=== PATIENT | female | born 1945 | race Caucasian/White ===

== ENCOUNTER → 2018-05-13 08:15 | Outpatient (CLI) | payer MEDICARE, OTHER, SELFPAY ==
--- NOTE | 2018-05-13 | DI.ECHO.S_ITS ---
[facility] +---------+ : : [address] [address] : : : : [id number] : : : : Phone: [phone]+ Echocardiogram Report + + :Name: VANDANA LOBO Study Date: 05/13/2018 Height: 63 in : :[facility] Weight: 158 lb : : Gender: Female BSA: 1.7 m2 : :: 1945 Age: 73 yrs BP: 148/78 mmHg: :Reason For Study: Edema : : Performed By: Merle Peguero : :Referring: JERICA SANDOVAL : + + Interpretation Summary The left ventricle is normal in size, wall thickness, and systolic function without any focal wall motion abnormalities with the ejection fraction visually estimated to be 60-65%. Diastolic parameters suggest probable normal left ventricular diastolic function and normal filling pressures. The right ventricle grossly appears normal in size with probable normal systolic function. The right ventricular systolic pressure is estimated to be at least 32 mmHg based on an estimated right atrial pressure of 3 mm Hg. Both atria are normal in size. There is mild mitral regurgitation and mild tricuspid regurgitation but no other significant valvular heart disease. Procedure: A two-dimensional transthoracic echocardiogram with color flow and Doppler was performed. The study quality was technically adequate. There is no prior echocardiogram noted for this patient. The patient was in normal sinus rhythm during the exam. Left Ventricle: The left ventricle is normal in size, wall thickness, and systolic function without any focal wall motion abnormalities. The ejection fraction is estimated to be 60-65%. Diastolic parameters suggest probable normal left ventricular diastolic function and normal filling pressures. Right Ventricle: The right ventricle grossly appears normal in size with probable normal systolic function. Atria: Both atria are normal in size. The interatrial septum is intact with no evidence for an atrial septal defect. Mitral Valve: The mitral valve leaflets appear normal. There is no evidence of stenosis, fluttering, or prolapse. There is mild mitral regurgitation. Aortic Valve: The aortic valve is trileaflet. The aortic valve is slightly calcified. Leaflet mobility is minimally reduced. There is no aortic valve stenosis. No aortic regurgitation is present. Tricuspid Valve: The tricuspid valve leaflets are thin and pliable. There is mild tricuspid regurgitation. The right ventricular systolic pressure is estimated to be at least 32 mmHg based on an estimated right atrial pressure of 3 mm Hg. Pulmonic Valve: The pulmonic valve is normal in structure and function. There is no pulmonic valvular regurgitation. There is no other significant valvular heart disease. Great Vessels: The aortic root is normal size. The dimensions of the ascending aorta are normal. The aortic arch is normal in size. The IVC is of normal diameter and collapses greater than 50% with a sniff. This suggests a low right atrial pressure of 3 mm Hg. Pericardium/ Pleura There is no pericardial effusion. There is no pleural effusion. MMode/2D Measurements & Calculations LVIDd: 4.7 cm Ao root diam: 2.8 cm LVIDs: 2.9 cm Aortic Jxn: 2.5 cm FS: 39.3 % asc Aorta Diam: 3.0 cm EPSS: 0.31 cm Ao Arch Diam (Prox Trans): 2.9 cm IVSd: 0.95 cm LVPWd: 0.94 cm LV lockett. diameter/BSA (cm/m^2): 2.7 LV sys. diameter/BSA (cm/m^2): 1.6 LA dimension: 3.8 cm RA long axis: 4.0 cm LA A2 area: 13.5 cm2 RA area: 13.2 cm2 LA A4 area: 15.3 cm2 RA vol: 36.9 ml LA length (vol): 4.9 cm RA : 21.1 ml/m2 LA vol: 36.0 ml IVC diam: 1.6 cm LA vol index: 20.6 ml/m2 RVDd major: 6.1 cm RVD1 (basal): 3.5 cm RVD2 (mid): 3.0 cm Doppler Measurements & Calculations Ao V2 max: 136.9 cm/sec MV E max elvin: 98.7 cm/sec Ao V2 mean: 83.6 cm/sec MV A max elvin: 67.2 cm/sec Ao max P.5 mmHg MV E/A: 1.5 Ao mean P.5 mmHg Med Peak E' Elvin: 6.9 cm/sec Ao V2 VTI: 28.3 cm E/E' med: 14.2 Lat Peak E' Elvin: 8.9 cm/sec E/E' lat: 11.0 E/e' average: 12.6 MV dec time: 0.13 sec TR max elvin: 269.6 cm/sec TR max P.1 mmHg PA V2 max: 101.5 cm/sec PA V2 mean: 66.5 cm/sec PA mean P.1 mmHg PA Accel Time: 0.14 sec Reading Physician:URIEL
== END ==
PROVIDERS: PCP Student in an Organized Health Care Education/Training Program; Visit Provider Student in an Organized Health Care Education/Training Program
DX: I08.1 Rheumatic disorders of both mitral and tricuspid valves (principal); R60.9 Edema, unspecified
CPT/HCPCS: 93306

== ENCOUNTER → 2018-06-02 11:08 | Outpatient (CLI) | payer MEDICARE, OTHER, SELFPAY ==
--- NOTE | 2018-06-02 13:59 | DI.MRI.S_ITS ---
PROCEDURE: MR LUMBAR SPINE WO CON INDICATIONS: LUMBAR RADICULOPATHY TECHNIQUE: Noncontrast sagittal T1 spin echo and T2 fast echo, sagittal STIR, axial T1 and T2 fast spin echo through the lumbar spine. In cases with scoliosis, additional coronal T2 fast spin echo may be performed. COMPARISON: [facility], CR, SPINE LUMB 6+VW, 04/20/2016, 15:52. [facility], MR, MR LUMBAR SPINE WO CON, 05/07/2016, 9:46. FINDINGS: Image quality: Excellent. Alignment and Curvature: There is grade 1 anterolisthesis of L4-L5. Bone Marrow: Reactive endplate signal changes are present at multiple levels. No acute vertebral body compression fractures. Spinal Cord: Conus medullaris terminates at the L1-L2 level. Visualized cord demonstrates normal signal and size. Paraspinous Soft Tissues: No paravertebral masses. L1-L2: Mild loss of disc height and disc desiccation. There is diffuse posterior disc bulge. The central canal is patent. No foraminal stenosis. No significant change from the last exam. L2-L3: Preserved height. Mild disc desiccation. There is mild posterior disc bulge. The central canal is patent. No foraminal stenosis. No significant change from the last exam. L3-L4: Preserved height. Mild disc desiccation. There is diffuse posterior disc bulge. Mild bilateral facet arthropathy. The central canal is mildly narrowed. Mild bilateral foraminal stenosis. No significant change from the last exam. L4-L5: Preserved height. Mild disc desiccation. There is diffuse posterior disc bulge and posterior central annular fissure. Mild bilateral facet arthropathy. Severe central canal stenosis, increased compared to the last exam. Moderate bilateral foraminal stenosis is unchanged. L5-S1: Mild loss of height and disc desiccation. There is diffuse posterior disc bulge and posterior central annular fissure. Mild bilateral facet arthropathy. The central canal is mildly narrowed. Severe bilateral foraminal stenosis. No significant change from the last exam. IMPRESSION: 1. Multilevel degenerative disc disease and facet arthropathy as described. 2. Severe central canal stenosis at L5-L5. 3. Multilevel foraminal stenosis as described. Dictated by: Rubina Sewell M.D. on 06/02/2018 at 13:34 Approved by: Rubina Sewell M.D. on 06/02/2018 at 18:01
== END ==
PROVIDERS: PCP Student in an Organized Health Care Education/Training Program; Visit Provider Physical Medicine & Rehabilitation Pain Medicine
DX: M51.16 Intervertebral disc disorders with radiculopathy, lumbar region (principal); M51.17 Intervertebral disc disorders with radiculopathy, lumbosacral region; M48.061 Spinal stenosis, lumbar region without neurogenic claudication; M48.07 Spinal stenosis, lumbosacral region; M47.26 Other spondylosis with radiculopathy, lumbar region; M47.27 Other spondylosis with radiculopathy, lumbosacral region
CPT/HCPCS: 72148

== ENCOUNTER → 2018-06-09 09:07 | Outpatient (CLI) | payer MEDICARE, OTHER, SELFPAY ==
--- NOTE | 2018-06-09 | DI.MG.S_ITS ---
BILATERAL DIGITAL SCREENING MAMMOGRAM 3D/2D WITH CAD: 06/09/2018 CLINICAL: Routine screening. Family history of breast cancer. Comparison is made to exams dated: 04/19/2017 mammogram, 03/28/2015 mammogram, and 08/25/2013 mammogram - [facility]. There are scattered fibroglandular elements in both breasts. Current study was also evaluated with a Computer Aided Detection (CAD) system. No significant masses, calcifications, or other findings are seen in either breast. There has been no significant interval change. IMPRESSION: NEGATIVE There is no mammographic evidence of malignancy. A 1 year screening mammogram is recommended. This exam was interpreted at Station ID: [id number]. NOTE: For mammograms, a report in lay terms will be sent to the patient. Approximately 15% of breast malignancies will not be visualized mammographically. In the management of a palpable breast mass, a negative mammogram must not discourage biopsy of a clinically suspicious lesion. Electronically Signed By: Ady mittal/juan:06/09/2018 12:02:05 letter sent: Normal Exam ACR BI-RADS Category 1: Negative 3341F
== END ==
PROVIDERS: PCP Student in an Organized Health Care Education/Training Program; Visit Provider Student in an Organized Health Care Education/Training Program
DX: Z12.31 Encounter for screening mammogram for malignant neoplasm of breast (principal); Z80.3 Family history of malignant neoplasm of breast
CPT/HCPCS: 77063; 77067

== ENCOUNTER → 2020-06-11 11:11 | Outpatient (CLI) | payer MEDICARE, OTHER, SELFPAY ==
--- NOTE | 2020-06-11 | DI.MG.S_ITS ---
BILATERAL DIGITAL SCREENING MAMMOGRAM 3D/2D WITH CAD: 06/11/2020 CLINICAL: Routine screening. Family history of breast cancer. Comparison is made to exams dated: 06/09/2018 mammogram, 04/19/2017 mammogram, and 03/28/2015 mammogram - [facility]. There are scattered fibroglandular elements in both breasts. Current study was also evaluated with a Computer Aided Detection (CAD) system. No significant masses, calcifications, or other findings are seen in either breast. There has been no significant interval change. IMPRESSION: NEGATIVE There is no mammographic evidence of malignancy. A 1 year screening mammogram is recommended. This exam was interpreted at Station ID: [id number]. NOTE: For mammograms, a report in lay terms will be sent to the patient. Approximately 15% of breast malignancies will not be visualized mammographically. In the management of a palpable breast mass, a negative mammogram must not discourage biopsy of a clinically suspicious lesion. Electronically Signed By: Cristofer olson/juan:06/11/2020 11:49:24 letter sent: Normal Exam ACR BI-RADS Category 1: Negative 3341F
== END ==
PROVIDERS: PCP Physician Assistant; Referring Provider Physician Assistant; Visit Provider Physician Assistant
DX: Z12.31 Encounter for screening mammogram for malignant neoplasm of breast (principal); Z80.3 Family history of malignant neoplasm of breast
CPT/HCPCS: 77063; 77067

== ENCOUNTER → 2021-07-23 10:22 | Outpatient (CLI) | payer MEDICARE, OTHER, SELFPAY ==
--- NOTE | 2021-07-23 | DI.MG.S_ITS ---
BILATERAL DIGITAL SCREENING MAMMOGRAM 3D/2D WITH CAD: 07/23/2021 CLINICAL: Routine screening. Family history of breast cancer. Comparison is made to exams dated: 06/11/2020 mammogram, 06/09/2018 mammogram, 04/19/2017 mammogram, 03/28/2015 mammogram, and 08/25/2013 mammogram - [facility]. There are scattered fibroglandular elements in both breasts. Current study was also evaluated with a Computer Aided Detection (CAD) system. No significant masses, calcifications, or other findings are seen in either breast. There has been no significant interval change. IMPRESSION: NEGATIVE There is no mammographic evidence of malignancy. A 1 year screening mammogram is recommended. This exam was interpreted at Station ID: [id number]. NOTE: For mammograms, a report in lay terms will be sent to the patient. Approximately 15% of breast malignancies will not be visualized mammographically. In the management of a palpable breast mass, a negative mammogram must not discourage biopsy of a clinically suspicious lesion. Electronically Signed By: Marcos sosa/juan:07/23/2021 12:13:12 letter sent: Normal Exam ACR BI-RADS Category 1: Negative 3341F
== END ==
PROVIDERS: PCP Physician Assistant; Referring Provider Physician Assistant; Visit Provider Physician Assistant
DX: Z12.31 Encounter for screening mammogram for malignant neoplasm of breast (principal); Z80.3 Family history of malignant neoplasm of breast
CPT/HCPCS: 77063; 77067

== ENCOUNTER 2021-11-06 10:56 | Emergency (ER) | payer MEDICARE, OTHER, SELFPAY ==
--- NOTE | 2021-11-06 11:02 | DI.RAD.S_ITS ---
PROCEDURE: XR FOREARM LT 2V INDICATIONS: fall laceration TECHNIQUE: 2 views of the forearm were acquired. COMPARISON: None. FINDINGS: Bones: No fractures or dislocations. No suspicious bony lesions. Soft tissues: No suspicious soft tissue calcifications or masses. Soft tissue injury over the mid forearm on the flexor side. No radiopaque foreign body. IMPRESSION: Soft tissue injury, no fracture. No radiopaque foreign body. Dictated by: Martin Baptiste M.D. on 11/06/2021 at 11:46 Approved by: Martin Baptiste M.D. on 11/06/2021 at 11:53
--- NOTE | 2021-11-06 11:02 | DI.RAD.S_ITS ---
PROCEDURE: XR HIP W PEL IF DONE LT 2V INDICATIONS: fall TECHNIQUE: AP pelvis with lateral view(s) of the left hip(s). COMPARISON: None. FINDINGS: Bones: No fractures or dislocations. Pelvic ring appears intact. No suspicious bony lesions. Both hips and the symphysis pubis have mild degenerative changes. Soft tissues: The visualized bowel gas pattern is normal. No suspicious soft tissue calcifications. IMPRESSION: Mild degenerative changes of both hips and the symphysis pubis consistent with osteoarthritis. Dictated by: Martin Baptiste M.D. on 11/06/2021 at 11:54 Approved by: Martin Baptiste M.D. on 11/06/2021 at 11:55
[2021-11-06 11:03] VITALS: BP 183/92; PULSE 77; RESP 16; TEMP 36.5; O2SAT 97; BMI 28.3
--- NOTE | 2021-11-06 11:04 | ED_ITS ---
HPI - Fall General Chief Complaint: Fall Stated Complaint: GLF Time Seen by Provider: 11/06/21 11:02 History of Present Illness HPI Narrative: Patient is a 76-year-old female history of hypothyroid hyperlipidemia, presenting today with a mechanical ground level fall. She said she was walking outside in her garden she tripped over her own shoes on the sidewalk landing into an iron as on her left arm. She has a laceration left arm numbness tingling or weakness. She is also having some left hip pain. She is not on any anti-platelet or anticoagulation medication. She did not hit her head or lose consciousness. Related Data Home Medications Medication Instructions Recorded Confirmed cholecalciferol (vitamin D3) 10 400 iu PO ##0 02/18/17 09/15/19 mcg (400 unit) capsule (Vitamin D3) aspirin 81 mg tablet,delayed 81 mg PO DAILY 09/15/19 07/09/21 release levothyroxine 88 mcg capsule 88 mcg PO DAILY 09/15/19 07/09/21 rosuvastatin 10 mg tablet 5 mg PO DAILY 09/15/19 07/09/21 Previous Rx's Medication Instructions Recorded estradiol 1 mg tablet See Rx Instructions .Route 12/04/20 .COMPLEX #135 tabs Allergies Allergy/AdvReac Type Severity Reaction Status Date / Time No Known Drug Allergies Allergy Verified 11/06/21 11:08 Review of Systems Review of Systems Narrative: GENERAL: Denies chills, fatigue, malaise, fever, sweats, travel HEENT: Denies sinus pain, ear pain, sore throat, difficulty swallowing, neck pain RESPIRATORY: Denies dyspnea, cough, wheezing, hemoptysis, sputum. CARDIOVASCULAR: Denies chest pain, palpitations, orthopnea, edema GASTROINTESTINAL: Denies nausea, vomiting, abdominal pain, diarrhea, constipati on, melena. : Denies dysuria, frequency, incontinence, hematuria, urinary retention, flank pain. MUSCULOSKELETAL: + hip pain see HPI SKIN: + laceration see HPI NEUROLOGIC: Denies weakness, dizziness, headache, numbness, change in speech, confusion PSYCHIATRIC: No concerning psychosocial issues. 12 point review of systems is negative except for those stated above and HPI Patient History Surgical History Status post hysterectomy Status post tonsillectomy and adenoidectomy Social History Smoking Status: Never smoker Smoking Status: Never smoker Exam Initial Vital Signs Initial Vital Signs: Vital Signs Temperature 97.7 F 11/06/21 11:03 Pulse Rate 77 11/06/21 11:03 Respiratory Rate 16 11/06/21 11:03 Blood Pressure 183/92 H 11/06/21 11:03 Pulse Oximetry 97 11/06/21 11:03 Oxygen Delivery Method 11/06/21 11:03 GENERAL: Alert pleasant 76-year-old female HEENT: Head atraumatic,EOMI, pupils reactive, face symmetric, moist mucous membranes NECK: Supple will tenderness no step CARDIOVASCULAR: Regular rate and rhythm without murmurs, rubs or gallops. RESPIRATORY: Breath sounds equal bilaterally, no wheezes rales or rhonchi. ABDOMEN: Soft, nontender. Normoactive bowel sounds all 4 quadrants. No guarding or rebound. EXTREMITIES: Normal range of motion, no clubbing or edema. Neurovascularly intact Left hip pain good distal pedal pulse legs are of equal length she is moving it knee is stable Left upper extremity laceration and forearm distal radial pulse intact radial median ulnar nerve intact NEUROLOGICAL: Alert and oriented x4.Normal gait and speech. SKIN: Laceration left forearm 7cm Procedures Laceration Repair Laceration 1: Site: upper extremity Size (cm): 7 Description: linear Depth: simple, single layer Local Anesthetic: lidocaine 2% Amount of anesthesia used (mL): 10 Skin layer closed with: nylon Skin layer suture size: 4-0 Number of sutures: 5 Course Orders Ordered: ED Orders 11/06/21 11:02 XR forearm LT 2V Stat XR hip w pel if done LT 2V Stat 11/06/21 11:05 XR wrist RT min 3V Stat 11/06/21 12:08 XR shoulder LT min 2V Stat Discontinued Medications Diphtheria/Tetanus/Acell Pertussis (Tet,Diph,Pertuss(Acell),Vac/Pf 0.5 Ml Syringe) 0.5 ml IM .ONCE ONE Stop: 11/06/21 11:03 Last Admin: 11/06/21 11:58 Dose: 0.5 ml Documented By: AT Lidocaine HCl (Lidocaine 2% Inj Mdv 10ml) 1 mg SUBCUT NOW ONE Stop: 11/06/21 11:03 Last Admin: 11/06/21 11:58 Dose: 1 mg Documented By: AT Vital Signs Vital signs: Vital Signs - 8 hr 11/06/21 11:03 Temperature 97.7 F Pulse Rate 77 Respiratory Rate 16 Blood Pressure 183/92 H Pulse Oximetry 97 Oxygen Delivery Method Room Air MDM - Fall Lab Data Labs: Urine Dip Bedside Urine Glucose Negative Bedside Urine Bilirubin - Negative Bedside Urine Ketone - Negative Urine Specific [place] 1.010 Bedside Urine Occult Blood +/- Bedside Urine pH 7.0 Bedside Urine Protein - Negative Bedside Urine Urobilinogen - Negative Bedside Urine Nitrite - Negative Bedside Urine Leukocytes - Negative Esterase Imaging Data Extremity x-ray #1: Radiologist's Impression: atient: Darling Mcdonald MR#: [id number] : 1945 Acct:[id number] Age/Sex: 76 / F Date of Service: 11/06/21 Loc: ED Accession Number: [id number] ?? Procedure: XR forearm LT 2V Ordering Provider: Jordana Cantu D.O. PROCEDURE:? XR FOREARM LT 2V ? INDICATIONS:? fall laceration ? TECHNIQUE:? 2 views of the forearm were acquired.? ? COMPARISON:? None. ? FINDINGS:? ? Bones:? No fractures or dislocations.? No suspicious bony lesions.? ? Soft tissues:? No suspicious soft tissue calcifications or masses.? Soft tissue injury over the mid forearm on the flexor side.? No radiopaque foreign body. ? ? IMPRESSION:? Soft tissue injury, no fracture.? No radiopaque foreign body. ? Dictated by: Martin Baptiste M.D. on 11/06/2021 at 11:46 ? ? Extremity x-ray #2: Radiologist's Impression: Signed Patient: Darling Mcdonald MR#: [id number] : 1945 Acct:[id number] Age/Sex: 76 / F Date of Service: 11/06/21 Loc: ED Accession Number: [id number] ?? Procedure: XR hip w pel if done LT 2V Ordering Provider: Jordana Cantu D.O. PROCEDURE:? XR HIP W PEL IF DONE LT 2V ? INDICATIONS:? fall ? TECHNIQUE:? AP pelvis with lateral view(s) of the left hip(s).? ? COMPARISON:? None. ? FINDINGS:? ? Bones:? No fractures or dislocations.? Pelvic ring appears intact.? No suspicious bony lesions.? Both hips and the symphysis pubis have mild degenerative changes. ? Soft tissues:? The visualized bowel gas pattern is normal.? No suspicious soft tissue calcifications.? ? ? IMPRESSION:? Mild degenerative changes of both hips and the symphysis pubis consistent with osteoarthritis. ? Dictated by: Martin Baptiste M.D. on 11/06/2021 at 11:54 ? ? Approved by: Martin Baptiste M.D. on 11/06/2021 at 11:55 ? Extremity x-ray #3: Radiologist's Impression: t: Darling Mcdonald MR#: [id number] : 1945 Acct:[id number] Age/Sex: 76 / F Date of Service: 11/06/21 Loc: ED Accession Number: [id number] ?? Procedure: XR wrist RT min 3V Ordering Provider: Jordana Cantu D.O. PROCEDURE:? XR WRIST RT MIN 3V ? INDICATIONS: fell on R hand/wrist pain ? TECHNIQUE:? For views of the wrist were acquired.? ? COMPARISON:? None. ? FINDINGS:? ? Bones:? No fractures or dislocations.? No suspicious bony lesions.? ? Scaphoid view:? Normal ? Soft tissues:? No suspicious soft tissue calcifications.? ? IMPRESSION:? No acute abnormality of the right wrist. ? ? Dictated by: Martin Baptiste M.D. on 11/06/2021 at 11:55 ? ? Approved by: Martin Baptiste M.D. on 11/06/2021 at 11:56 ? PROCEDURE:? XR SHOULDER LT MIN 2V ? INDICATIONS:? fall ? TECHNIQUE:? 3 views of the shoulder were acquired.? ? COMPARISON:? None. ? FINDINGS:? ? Bones:? No fractures or dislocations.? No suspicious bony lesions.? Visualized ribs appear intact.? ? Soft tissues:? No suspicious soft tissue calcifications.? ? IMPRESSION:? Normal shoulder ? ? Dictated by: Martin Baptiste M.D. on 11/06/2021 at 13:46 ? ? MDM Narrative Medical decision making narrative: Patient had a mechanical fall outside. She had a laceration on her left arm it was easily repaired. Tetanus is updated. Fortunately no broken bones. Discharge Plan Departure Patient Disposition: Home Clinical Impression: Laceration of left forearm Instructions: DI for Laceration Repair Activity Restrictions/Additional Instructions: *You have been diagnosed with left arm laceration *What to do: Have sutures removed in about 5-7 days. Keep area clean and dry with soap and water. Avoid soaking. May apply antibiotic ointment 1-2 times daily *Continue to take medications as directed *Follow up with your primary care provider in 2-3 days or call [phone] *Return to ER if you should have redness swelling drainage or any new, worsening or concerning symptoms Prescriptions: No Action cholecalciferol (vitamin D3) [Vitamin D3] 400 UNIT capsule 400 iu PO Qty: 0 estradiol 1 mg tablet See Rx Instructions .ROUTE .COMPLEX Qty: 135 3RF Dose Instruction: TAKE 1 AND 1/2 TABLET BY MOUTH ONCE DAILY. Schedule appointment for refills. Rx Instructions: TAKE 1 AND 1/2 TABLET BY MOUTH ONCE DAILY. levothyroxine 88 mcg capsule 88 mcg PO DAILY rosuvastatin 10 mg tablet 5 mg PO DAILY aspirin 81 mg tablet,delayed release (DR/EC) 81 mg PO DAILY Referrals: Angélica Cosme PA-C [Primary Care Provider] - Visit Report Forms: Patient Portal/API
--- NOTE | 2021-11-06 11:05 | DI.RAD.S_ITS ---
PROCEDURE: XR WRIST RT MIN 3V INDICATIONS: fell on R hand/wrist pain TECHNIQUE: For views of the wrist were acquired. COMPARISON: None. FINDINGS: Bones: No fractures or dislocations. No suspicious bony lesions. Scaphoid view: Normal Soft tissues: No suspicious soft tissue calcifications. IMPRESSION: No acute abnormality of the right wrist. Dictated by: Martin Baptiste M.D. on 11/06/2021 at 11:55 Approved by: Martin Baptiste M.D. on 11/06/2021 at 11:56
[2021-11-06] MEDS: TET,DIPH,PERTUSS(ACELL),VAC/PF 0.5 ML SYRINGE IM (11:58)
[2021-11-06] MEDS: LIDOCAINE 2% INJ MDV 10ML 1 MG SUBCUT (11:58)
--- NOTE | 2021-11-06 12:08 | DI.RAD.S_ITS ---
PROCEDURE: XR SHOULDER LT MIN 2V INDICATIONS: fall TECHNIQUE: 3 views of the shoulder were acquired. COMPARISON: None. FINDINGS: Bones: No fractures or dislocations. No suspicious bony lesions. Visualized ribs appear intact. Soft tissues: No suspicious soft tissue calcifications. IMPRESSION: Normal shoulder Dictated by: Martin Baptiste M.D. on 11/06/2021 at 13:46 Approved by: Martin Baptiste M.D. on 11/06/2021 at 13:46
== END 2021-11-06 13:09 | disposition home or self-care (01) ==
PROVIDERS: Emergency Provider Emergency Medicine; PCP Physician Assistant
DX: M25.552 Pain in left hip (principal); S51.812A Laceration without foreign body of left forearm, initial encounter; W18.09XA Striking against other object with subsequent fall, initial encounter; Z23 Encounter for immunization
CPT/HCPCS: 12002; 73030; 73090; 73110; 73502; 81003; 90471; 99284; 90715

== ENCOUNTER → 2022-10-23 10:10 | Outpatient (CLI) | payer MEDICARE, OTHER, SELFPAY ==
--- NOTE | 2022-10-23 | DI.MG.S_ITS ---
BILATERAL DIGITAL SCREENING MAMMOGRAM 3D/2D WITH CAD: 10/23/2022 CLINICAL: Routine screening. Family history of breast cancer. Comparison is made to exams dated: 07/23/2021 mammogram, 06/11/2020 mammogram, and 06/09/2018 mammogram - [facility]. There are scattered areas of fibroglandular density in both breasts (category b / 25%-50% glandular tissue). Current study was also evaluated with a Computer Aided Detection (CAD) system. No significant masses, calcifications, or other findings are seen in either breast. There has been no significant interval change. IMPRESSION: NEGATIVE There is no mammographic evidence of malignancy. A 1 year screening mammogram is recommended. Based on the Tyrer Cuzick model (a risk assessment model) the patient's lifetime risk is 4.6% and her 10 year risk is 0.0%. According to the ACR, ACS, and NCCN guidelines, an annual breast MRI exam along with mammogram is recommended if the patient's lifetime risk is 20% or greater. This exam was interpreted at Station ID: [id number]. NOTE: For mammograms, a report in lay terms will be sent to the patient. Approximately 15% of breast malignancies will not be visualized mammographically. In the management of a palpable breast mass, a negative mammogram must not discourage biopsy of a clinically suspicious lesion. Electronically Signed By: Sami mosher/juan:10/23/2022 12:52:17 letter sent: Normal Exam ACR BI-RADS Category 1: Negative [id number]
== END ==
PROVIDERS: PCP Physician Assistant; Referring Provider Physician Assistant; Visit Provider Physician Assistant
DX: Z12.31 Encounter for screening mammogram for malignant neoplasm of breast (principal); Z80.3 Family history of malignant neoplasm of breast
CPT/HCPCS: 77063; 77067

== ENCOUNTER → 2024-01-03 12:42 | Outpatient (CLI) | payer MEDICARE, OTHER, SELFPAY ==
--- NOTE | 2024-01-03 12:44 | DI.MG.S_ITS ---
BILATERAL DIGITAL SCREENING MAMMOGRAM 3D/2D WITH CAD: 01/03/2024 CLINICAL: Routine screening. Family history of breast cancer. Comparison is made to exams dated: 10/23/2022 mammogram, 07/23/2021 mammogram, and 06/11/2020 mammogram - [facility]. There are scattered areas of fibroglandular density (category b / 25%-50% glandular tissue). Current study was also evaluated with a Computer Aided Detection (CAD) system. No significant masses, calcifications, or other findings are seen in either breast. There has been no significant interval change. IMPRESSION: NEGATIVE There is no mammographic evidence of malignancy. A 1 year screening mammogram is recommended. Based on the Tyrer Cuzick model (a risk assessment model) the patient's lifetime risk is 4.2% and her 10 year risk is 0.0%. According to the ACR, ACS, and NCCN guidelines, an annual breast MRI exam along with mammogram is recommended if the patient's lifetime risk is 20% or greater. This exam was interpreted at Station ID: [id number]. NOTE: For mammograms, a report in lay terms will be sent to the patient. Approximately 15% of breast malignancies will not be visualized mammographically. In the management of a palpable breast mass, a negative mammogram must not discourage biopsy of a clinically suspicious lesion. Electronically Signed By: Sami mosher/juan:01/03/2024 15:11:59 letter sent: Normal Exam ACR BI-RADS Category 1: Negative
== END ==
LOC: MAMMO 12:43
PROVIDERS: PCP Physician Assistant; Referring Provider Physician Assistant; Visit Provider Physician Assistant
DX: Z12.31 Encounter for screening mammogram for malignant neoplasm of breast (principal); Z80.3 Family history of malignant neoplasm of breast
CPT/HCPCS: 77063; 77067